=== PATIENT | male | born 1995 | race Caucasian/White ===

== ENCOUNTER 2016-12-28 20:19 | Emergency (ER) | payer BC ==
[2016-12-28 20:29] VITALS: BP 124/93
[2016-12-28] MEDS ORDERED: Witch Hazel Medicated Pads 100/Jar TOP PRN (21:02)
[2016-12-28] MEDS ORDERED: Hydrocortisone 1% Crm 30 GM Tube TOP PRN (21:02)
--- NOTE | 2016-12-28 21:36 | EDM.PDOC ---
ED HPI GI/ABDOMINAL - General Chief Complaint: Gastrointestinal Problem Stated Complaint: HEMORRHOID Time Seen by Provider: 12/28/16 20:38 Source of Information: Reports: Patient History Limitations: Reports: No limitations - History of Present Illness INITIAL COMMENTS - FREE TEXT/NARRATIVE: The patient presents with a possible painful hemorrhoid. He started noticing this a few days ago and it has gotten worse. He has had trouble before but never this bad. He has no abdominal pain, nausea or vomiting. He has chills but no fever. Timing/Duration: Reports: Day(s): Location: other (Rectal) Quality: Reports: burning Severity: moderate Worsens with: Reports: defecating Associated Symptoms: Denies: back pain, testicular pain, diarrhea, bloody stools , nausea/vomiting - Related Data Allergies/ADRs: Allergies Allergy/AdvReac Type Severity Reaction Status Date / Time No Known Allergies Allergy Verified 12/28/16 20:29 Home Meds: Home Meds Cetirizine [ZyrTEC] 10 mg PO DAILY 04/27/15 [History] Metoprolol Tartrate 50 mg PO BID 04/27/15 [History] Ranitidine [Zantac] 150 mg PO BID 04/27/15 [History] diphenhydrAMINE [Benadryl] 25 mg PO QID #28 tablet 04/27/15 [Rx] diphenhydrAMINE [Benadryl] 50 mg PO DAILY 04/27/15 [History] Past Medical History - Past Health History Medical/Surgical History: Denies Medical/Surgical History Other Cardiovascular History: Pt had SVT 2 months ago treated in the ED. Gastrointestinal History: Reports: GERD Social & Family History - Tobacco Use Smoking Status *Q: Never Smoker - Caffeine Use Caffeine Use: Reports: None - Alcohol Use Days Per Week of Alcohol Use: 1 Number of Drinks Per Day: 3 Total Drinks Per Week: 3 - Recreational Drug Use Recreational Drug Use: No ED ROS GENERAL - Review of Systems Review Of Systems: See Below Constitutional: Reports: no symptoms HEENT: Reports: No symptoms Respiratory: Reports: No Symptoms Cardiovascular: Reports: No symptoms Endocrine: Reports: no symptoms GI/Abdominal: Reports: Other (rectal pain). Denies: Abdominal pain, Nausea, Vomiting : Reports: no symptoms Musculoskeletal: Reports: no symptoms ED EXAM, GI/ABD - Physical Exam Exam: See Below Exam Limited By: No limitations General Appearance: alert, no apparent distress Ears: normal external exam Nose: normal inspection Head: atraumatic, normocephalic Neck: normal inspection Respiratory/Chest: no respiratory distress, lungs clear, normal breath sounds Cardiovascular: regular rate, rhythm, no edema, no murmur GI/Abdominal: soft, non tender, no organomegaly, no mass Rectal (Males) Exam: Other (Large external hemmorrhoid that is not thrombosed and there is no bleeding) Course - Vital Signs Last Recorded V/S: Last Vital Signs Temp 98.4 F 12/28/16 20:24 Pulse 104 H 12/28/16 20:24 Resp 18 12/28/16 20:24 BP 124/93 H 12/28/16 20:24 Pulse Ox 100 12/28/16 20:24 - Orders/Labs/Meds Orders: Active Orders 24 hr Category Date Time Status Hydrocortisone [Hydrocortisone 1% Crm] Med 12/28/16 21:02 Active 30 gm TOP ASDIRECTED PRN Witch Arabella [Tucks] Med 12/28/16 21:02 Active 1 pad TOP ASDIRECTED PRN Medication Orders Hydrocortisone (Hydrocortisone 1% Crm) 30 gm TOP ASDIRECTED PRN PRN Reason: Itching Last Admin: 12/28/16 21:27 Dose: 30 gm Witch Arabella (Tucks) 1 pad TOP ASDIRECTED PRN PRN Reason: Pain Last Admin: 12/28/16 21:28 Dose: 1 pad Meds: Medications Generic Name Dose Route Start Last Admin Trade Name Freq PRN Reason Stop Dose Admin Hydrocortisone 30 gm 12/28/16 21:02 12/28/16 21:27 Hydrocortisone 1% Crm TOP 30 gm ASDIRECTED PRN Administration Itching Witch Arabella 1 pad 12/28/16 21:02 12/28/16 21:28 Tucks TOP 1 pad ASDIRECTED PRN Administration Pain - Re-Assessments/Exams Free Text/Narrative Re-Assessment/Exam: 12/28/16 21:33 I will get him on some hydrocortisone and medi pads. I will have him follow up with Dr Davide Knox. Departure - Departure Time of Disposition: 21:35 Disposition: Home, Self-Care 01 Condition: good Clinical Impression: Hemorrhoid Qualifiers: Hemorrhoid type: second degree Qualified Code(s): K64.1 - Second degree hemorrhoids Referrals: Lul Collins Jr, MD [Primary Care Provider] - Davide Knox MD [Physician] - 1 Week Forms: ED Department Discharge Additional Instructions: Use the medi pads up to six times per day after cleaning the area and drying it and apply the hydrocortisone cream 2 times per day. Make sure you are drinking plenty of fluids and taking a stool softner such as colace to keep your stool loose. Please return if you are worse and follow up with Dr Knox in 1 week. - My Orders Last 24 Hours: My Active Orders 12/28/16 21:02 Hydrocortisone [Hydrocortisone 1% Crm] 30 gm TOP ASDIRECTED PRN Witch Arabella [Tucks] 1 pad TOP ASDIRECTED PRN - Assessment/Plan Last 24 Hours: My Active Orders 12/28/16 21:02 Hydrocortisone [Hydrocortisone 1% Crm] 30 gm TOP ASDIRECTED PRN Witch Arabella [Tucks] 1 pad TOP ASDIRECTED PRN
== END 2016-12-28 21:41 | disposition home or self-care (01) ==
LOC: JD.ED 20:19
DX: K64.1 Second degree hemorrhoids (principal); K64.4 Residual hemorrhoidal skin tags; K21.9 Gastro-esophageal reflux disease without esophagitis; Z79.899 Other long term (current) drug therapy
CPT/HCPCS: 99283

== ENCOUNTER 2017-02-20 12:55 | Emergency (ER) | payer BC ==
[2017-02-20 13:05] VITALS: BP 124/85
[2017-02-20] MEDS ORDERED: Sodium Chloride 0.9% 10 ML Syringe FLUSH PRN (13:24)
--- NOTE | 2017-02-20 13:32 | EDM.PDOC ---
ED HPI GENERAL MEDICAL PROBLEM - General Chief Complaint: Cardiovascular Problem Stated Complaint: INCREASED HEART RATE Time Seen by Provider: 02/20/17 13:27 Source of Information: Reports: Patient History Limitations: Reports: No Limitations - History of Present Illness INITIAL COMMENTS - FREE TEXT/NARRATIVE: 22-year-old male presents for evaluation and treatment of chest pain and palpitations. On arrival to ER patient was found to be in SVT. He was instructed to bear down and this successfully converted him to normal sinus rhythm of 105. The patient states that his chest pain and palpitations have since improved. He reports that he took a break around noon today. He states he walks outside and went and had lunch. He states that immediately after lunch he was walking outside and developed chest pain and palpitations. States that he sat down as he was feeling dizzy. He states that he tried bearing down at work but was unsuccessful. This is the third time he has been in SVT. The first time required conversion with adenosine. Last time he was able to convert with vagal manuevers. Patient is currently on metoprolol and takes this daily. Denies any current chest pains or palpitations. Denies any recent fevers, cough, abdominal pain, nausea, vomiting or diarrhea. Chest Pain Score (Numeric/FACES): 7 - Related Data Allergies Allergy/AdvReac Type Severity Reaction Status Date / Time No Known Allergies Allergy Verified 02/20/17 13:09 Home Meds: Home Meds Metoprolol Tartrate 50 mg PO BID 04/27/15 [History] Past Medical History - Past Health History Medical/Surgical History: Denies Medical/Surgical History Other Cardiovascular History: Pt had SVT 2 months ago treated in the ED. Gastrointestinal History: Reports: GERD Social & Family History - Family History Family Medical History: Noncontributory - Tobacco Use Smoking Status *Q: Former Smoker Used Tobacco, but Quit: Yes Month Tobacco Last Used: 1 - Caffeine Use Caffeine Use: Reports: None - Alcohol Use Days Per Week of Alcohol Use: 1 Number of Drinks Per Day: 3 Total Drinks Per Week: 3 - Recreational Drug Use Recreational Drug Use: No ED ROS GENERAL - Review of Systems Review Of Systems: See Below Constitutional: Denies: Fever Cardiovascular: Reports: Chest Pain (earlier, none currently), Palpitations ( earlier, none currently) GI/Abdominal: Denies: Abdominal Pain, Diarrhea, Nausea, Vomiting Neurological: Reports: Dizziness ED EXAM, GENERAL - Physical Exam Exam: See Below Exam Limited By: No Limitations General Appearance: Alert, WD/WN, No Apparent Distress, Anxious Ears: Normal External Exam Respiratory/Chest: No Respiratory Distress, Lungs Clear, Normal Breath Sounds Cardiovascular: Normal Peripheral Pulses, Regular Rate, Rhythm, No Murmur Peripheral Pulses: 2+: Radial (L) GI/Abdominal: Normal Bowel Sounds, Soft, Non-Tender Neurological: Alert, Oriented, Normal Cognition Psychiatric: Normal Affect, Normal Mood Skin Exam: Warm, Dry, Normal Color EKG INTERPRETATION EKG Date: 02/20/17 Time: 13:00 EKG Interpretation Comments: initial EKG at 12:58 shows a SVT second EKG at 13:05, post vagal manuevers, shows NSR at 105 bpm. Reviewed by myself and Dr. Vázquez. Course - Vital Signs Last Recorded V/S: Last Vital Signs Temp 36.9 C 02/20/17 13:01 Pulse 202 H 02/20/17 13:01 Resp 18 02/20/17 13:01 BP 124/85 02/20/17 13:01 Pulse Ox 100 02/20/17 13:01 - Orders/Labs/Meds Orders: Active Orders 24 hr Category Date Time Status Cardiac Monitoring [RC] . DIRECTED Care 02/20/17 13:23 Active EKG Documentation Completion [RC] STAT Care 02/20/17 13:23 Active Peripheral IV Care [RC] . DIRECTED Care 02/20/17 13:24 Active Peripheral IV Insertion Adult [OM.PC] Routine Oth 02/20/17 13:24 Ordered Labs: Laboratory Tests 02/20/17 02/20/17 Range/Units 13:05 13:05 WBC 8.58 (4.23-9.07) K/mm3 RBC 6.02 (4.63-6.08) M/mm3 Hgb 17.0 (13.7-17.5) gm/L Hct 46.9 (40.1-51.0) % MCV 77.9 L (79.0-92.2) fl MCH 28.2 (25.7-32.2) pg MCHC 36.2 H (32.2-35.5) g/dl RDW Std Deviation 37.4 (35.1-43.9) fL Plt Count 264 (163-337) K/mm3 MPV 9.3 L (9.4-12.3) fl Neut % (Auto) 51.6 (34.0-67.9) % Lymph % (Auto) 38.7 (21.8-53.1) % [place] % (Auto) 8.0 (5.3-12.2) % Eos % (Auto) 1.5 (0.8-7.0) Baso % (Auto) 0.0 L (0.1-1.2) % Neut # (Auto) 4.42 (1.78-5.38) K/mm3 Lymph # (Auto) 3.32 (1.32-3.57) K/mm3 [place]christ # (Auto) 0.69 (0.30-0.82) K/mm3 Eos # (Auto) 0.13 (0.04-0.54) K/mm3 Baso # (Auto) 0.00 L (0.01-0.08) K/mm3 Manual Slide Review Normal smear Sodium 141 (136-145) mEq/L Potassium 3.9 (3.5-5.1) mEq/L Chloride 105 (98-107) mEq/L Carbon Dioxide 21 (21-32) mEq/L Anion Gap 18.9 H (5-15) BUN 16 (7-18) mg/dL Creatinine 1.4 H (0.7-1.3) mg/dL Est Cr Clr Drug Dosing TNP Estimated GFR (MDRD) > 60 (>60) mL/min BUN/Creatinine Ratio 11.4 L (14-18) Glucose 159 H (74-106) mg/dL Calcium 9.6 (8.5-10.1) mg/dL Magnesium 1.7 L (1.8-2.4) mg/dl Total Bilirubin 0.3 (0.2-1.0) mg/dL AST 21 (15-37) U/L ALT 33 (16-63) U/L Alkaline Phosphatase 100 (46-116) U/L Troponin I < 0.017 (0.00-0.056) ng/mL Total Protein 8.5 H (6.4-8.2) g/dl Albumin 4.2 (3.4-5.0) g/dl Globulin 4.3 gm/dL Albumin/Globulin Ratio 1.0 (1-2) Meds: Medications Discontinued Medications Generic Name Dose Route Start Last Admin Trade Name Andres PRN Reason Stop Dose Admin Sodium Chloride 1,000 mls @ 999 mls/hr 02/20/17 14:22 02/20/17 14:49 Normal Saline IV 02/20/17 15:22 Not Given ONETIME ONE Sodium Chloride 10 ml 02/20/17 13:24 02/20/17 13:43 Saline Flush FLUSH 10 ml ASDIRECTED PRN Administration Keep Vein Open - Radiology Interpretation Free Text/Narrative:: chest [address] Chou: 1. Nothing acute is identified on portable chest xray - Re-Assessments/Exams Free Text/Narrative Re-Assessment/Exam: 02/20/17 14:40 Labs returned. WBC is 8.58, hgb is 17.0 and plts are 264 sodium is 141, potassium is 3.9 and chloride is 105. Anion gap is 18.9, creatinine is 1.4 and glucose is 159 Trop is normal at <0.017 Mag is 1.7 I ordered a bolus of NS. Patient does not want to stay any longer for the fluids. No chest pains or palpitations. He will drink fluids outpatient. Requests to go home at this time. Discharge instructions as documented. Departure - Departure Time of Disposition: 14:45 Disposition: Home, Self-Care 01 Condition: good Clinical Impression: SVT (supraventricular tachycardia), Dehydration Instructions: Paroxysmal Supraventricular Tachycardia, [id number], Dehydration, Adult, [id number] Referrals: Lul Collins Jr, MD [Primary Care Provider] - Forms: ED Department Discharge Additional Instructions: Continue on your metoprolol. drink plenty of fluids. Drink water and Gatorade or Powerade for the electrolytes. If you experience this again. Attempt To blow on a syringe and attempt to move the plunger. This will allow you to vagal down. He can also try bearing down. Follow up with your primary care provider as needed. Please return to the ER if your symptoms change or worsen. - My Orders Last 24 Hours: My Active Orders 02/20/17 13:23 Cardiac Monitoring [RC] . DIRECTED EKG Documentation Completion [RC] STAT 02/20/17 13:24 Peripheral IV Care [RC] . DIRECTED Peripheral IV Insertion Adult [OM.PC] Routine - Assessment/Plan Last 24 Hours: My Active Orders 02/20/17 13:23 Cardiac Monitoring [RC] . DIRECTED EKG Documentation Completion [RC] STAT 02/20/17 13:24 Peripheral IV Care [RC] . DIRECTED Peripheral IV Insertion Adult [OM.PC] Routine
[2017-02-20] MEDS ORDERED: Sodium Chloride 0.9% 1,000 ML IV ONE (14:22)
--- NOTE | 2017-02-20 14:41 | CR ---
Chest: Portable view of the chest was obtained. Comparison: Previous chest x-ray of 12/19/14. Heart size and mediastinum are within normal limits for portable technique. Lungs are clear. Bony structures are grossly intact. Impression: 1. Nothing acute is identified on portable chest x-ray. Diagnostic code #1
== END 2017-02-20 14:58 | disposition home or self-care (01) ==
LOC: JD.ED 12:55
DX: I47.1 Supraventricular tachycardia (principal); E86.0 Dehydration; Z87.891 Personal history of nicotine dependence
CPT/HCPCS: 36415; 71010; 80053; 83735; 84484; 85025; 93005; 99285; J7050; 99283

== ENCOUNTER 2017-09-29 14:16 | Emergency (ER) | payer BC ==
[2017-09-29 14:34] VITALS: BP 118/71
[2017-09-29] MEDS ORDERED: Adenosine 6 MG/2 ML SDV IVPUSH ONE (14:35)
[2017-09-29] MEDS ORDERED: Sodium Chloride 0.9% 10 ML Syringe FLUSH PRN (14:36)
[2017-09-29] MEDS ORDERED: Adenosine 12 MG/4 ML SDV IVPUSH ONE (14:36)
[2017-09-29] MEDS ORDERED: Sodium Chloride 0.9% 1,000 ML IV ONE ×2 (14:49→16:00)
--- NOTE | 2017-09-29 14:54 | EDM.PDOC ---
ED HPI GENERAL MEDICAL PROBLEM - General Chief Complaint: Chest Pain Stated Complaint: CHEST PAIN AND SOB Time Seen by Provider: 09/29/17 14:54 Source of Information: Reports: Patient, Old Records (previous ER records) History Limitations: Reports: No Limitations - History of Present Illness INITIAL COMMENTS - FREE TEXT/NARRATIVE: 22-year-old male presents for evaluation and treatment of chest pain and shortness of breath. Patient reports around 13:30 today he developed chest pain and shortness of breath. Full that his heart was racing. He has had this on several occasions in the past. He attempted vagal maneuvers including bearing- down and blowing into a syringe. Neither one of these vagal maneuvers resolved his discomfort. He reports associated symptoms of lightheadedness and diaphoresis. No syncope. Reports he is currently on metoprolol twice a day. He has been taking this as prescribed. He has never seen cardiology before. Patient reports that he is had SVT several times in the past. Review of system records show that he has been seen in the ER on numerous occasions for SVT. Often resolves with vagal maneuvers. He has required adenosine in the past. Left Chest Pain Score (Numeric/FACES): 6 - Related Data Allergies Allergy/AdvReac Type Severity Reaction Status Date / Time No Known Allergies Allergy Verified 02/20/17 13:09 Home Meds: Home Meds Metoprolol Tartrate 50 mg PO BID 04/27/15 [History] Past Medical History - Past Health History Medical/Surgical History: Denies Medical/Surgical History Other Cardiovascular History: Pt had SVT 2 months ago treated in the ED. Gastrointestinal History: Reports: GERD Social & Family History - Family History Family Medical History: Noncontributory - Tobacco Use Smoking Status *Q: Never Smoker Used Tobacco, but Quit: Yes Month Tobacco Last Used: 1 - Caffeine Use Caffeine Use: Reports: Soda - Alcohol Use Days Per Week of Alcohol Use: 1 Number of Drinks Per Day: 3 Total Drinks Per Week: 3 - Recreational Drug Use Recreational Drug Use: No ED ROS GENERAL - Review of Systems Review Of Systems: See Below Constitutional: Reports: Diaphoresis Respiratory: Reports: Shortness of Breath Cardiovascular: Reports: Chest Pain, Lightheadedness, Palpitations. Denies: Syncope GI/Abdominal: Reports: Nausea. Denies: Vomiting Neurological: Denies: Syncope ED EXAM, GENERAL - Physical Exam Exam: See Below Exam Limited By: No Limitations General Appearance: Alert, WD/WN, Anxious, Moderate Distress, Thin Nose: Normal Inspection Throat/Mouth: Normal Inspection Neck: Normal Inspection Respiratory/Chest: No Respiratory Distress, Lungs Clear, Normal Breath Sounds Cardiovascular: No Murmur, Tachycardia Peripheral Pulses: 2+: Radial (L), Radial (R) GI/Abdominal: Soft, Non-Tender Neurological: Alert, Oriented, Normal Cognition Psychiatric: Normal Affect, Normal Mood, Anxious Skin Exam: Cool, Diaphoretic EKG INTERPRETATION EKG Date: 09/29/17 Time: 14:30 Rhythm: Other (SVT) Rate (Beats/Min): 179 [place]: Normal P-Wave: Present QRS: Normal ST-T: Normal QT: Normal EKG Interpretation Comments: EKG at 14:30 shows SVT at 179 bpm. Repeat EKG at 15:00 shows a NSR at 79 bpm. EKGs reviewed by myself and Dr. Ram. Course - Vital Signs Last Recorded V/S: Last Vital Signs Temp 36.2 C 09/29/17 14:32 Pulse 168 H 09/29/17 14:32 Resp 19 09/29/17 14:32 BP 118/71 09/29/17 14:32 Pulse Ox 98 09/29/17 14:32 - Orders/Labs/Meds Orders: Active Orders 24 hr Category Date Time Status Cardiac Monitoring [RC] . DIRECTED Care 09/29/17 14:35 Active EKG Documentation Completion [RC] ASDIRECTED Care 09/29/17 14:50 Active Peripheral IV Care [RC] . DIRECTED Care 09/29/17 14:36 Active Chest 1V Frontal [CR] Stat Exams 09/29/17 14:49 Taken Peripheral IV Insertion Adult [OM.PC] Routine Oth 09/29/17 14:36 Ordered EKG 12 Lead [EK] Stat Ther 09/29/17 14:49 Ordered Labs: Laboratory Tests 09/29/17 09/29/17 Range/Units 14:25 14:25 WBC 8.48 (4.23-9.07) K/mm3 RBC 6.33 H (4.63-6.08) M/mm3 Hgb 17.8 H (13.7-17.5) gm/L Hct 49.0 (40.1-51.0) % MCV 77.4 L (79.0-92.2) fl MCH 28.1 (25.7-32.2) pg MCHC 36.3 H (32.2-35.5) g/dl RDW Std Deviation 36.9 (35.1-43.9) fL Plt Count 326 (163-337) K/mm3 MPV 8.7 L (9.4-12.3) fl Neutrophils % (Manual) 64 H (40-60) % Band Neutrophils % 0 (0-10) % Lymphocytes % (Manual) 30 (20-40) % Atypical Lymphs % 0 % Monocytes % (Manual) 5 (2-10) % Eosinophils % (Manual) 1 (0.8-7.0) % Basophils % (Manual) 0 L (0.2-1.2) Platelet Estimate Adequate Poikilocytosis 1+ slight Tear Drop Cells 1+ slight RBC Morph Comment Not Reportable Sodium 141 (136-145) mEq/L Potassium 3.9 (3.5-5.1) mEq/L Chloride 105 (98-107) mEq/L Carbon Dioxide 22 (21-32) mEq/L Anion Gap 17.9 H (5-15) BUN 20 H (7-18) mg/dL Creatinine 1.5 H (0.7-1.3) mg/dL Est Cr Clr Drug Dosing 80.88 mL/min Estimated GFR (MDRD) 57 (>60) mL/min BUN/Creatinine Ratio 13.3 L (14-18) Glucose 116 H (74-106) mg/dL Calcium 9.4 (8.5-10.1) mg/dL Magnesium 1.9 (1.8-2.4) mg/dl Total Bilirubin 0.5 (0.2-1.0) mg/dL AST TNP ALT TNP Alkaline Phosphatase 79 (46-116) U/L Troponin I < 0.017 (0.00-0.056) ng/mL Total Protein 8.4 H (6.4-8.2) g/dl Albumin 4.2 (3.4-5.0) g/dl Globulin 4.2 gm/dL Albumin/Globulin Ratio 1.0 (1-2) TSH 3rd Generation 1.815 (0.358-3.74) uIU/mL Ethyl Alcohol 0.00 (0.00) gm% Meds: Medications Discontinued Medications Generic Name Dose Route Start Last Admin Trade Name Andres PRN Reason Stop Dose Admin Adenosine 6 mg 09/29/17 14:35 09/29/17 14:52 Adenocard IVPUSH 09/29/17 14:36 6 mg NOW ONE Administration Adenosine 12 mg 09/29/17 14:36 09/29/17 14:52 Adenocard IVPUSH 09/29/17 14:37 12 mg NOW ONE Administration Sodium Chloride 1,000 mls @ 999 mls/hr 09/29/17 14:49 09/29/17 14:57 Normal Saline IV 09/29/17 15:49 999 mls/hr ONETIME ONE Administration Sodium Chloride 1,000 mls @ 999 mls/hr 09/29/17 16:00 09/29/17 16:10 Normal Saline IV 09/29/17 17:00 999 mls/hr ONETIME ONE Administration Sodium Chloride 10 ml 09/29/17 14:36 09/29/17 14:52 Saline Flush FLUSH 10 ml ASDIRECTED PRN Administration Keep Vein Open - Radiology Interpretation Free Text/Narrative:: chest xray shows no acute intrathoracic process - Re-Assessments/Exams Free Text/Narrative Re-Assessment/Exam: 09/29/17 16:20 Patient's initial EKG showed SVT. We attempted to perform vagal maneuvers by having patient blow into a syringe while elevating his legs. This did not change in his rhythm. I then had nursing staff establish an IV. He was given 6 mg IV adenosine was attached to a stopcock and normal saline was immediately pushed. This did not show any changes on his telemetry. He was then given a dose of 12 mg adenosine was attached to stopcock and Normal saline was immediately pushed. This brought him to a normal sinus rhythm. Adenosine was given at 14:43 (6mg) and 14:45 (12mg). Patient is resting comfortably at this time. He denies any chest pain since his rhythm has converted to normal sinus. He has been in a normal sinus rhythm since receiving the second dose of adenosine. I reviewed the labs, EKG and chest x-ray results with the patient. Labs show dehydration. I will order him a second bolus of normal saline and to monitor here in the ER. 09/29/17 17:22 Patient received a second liter normal saline. He is stated in normal sinus rhythm since receiving the adenosine. I will discharge him home at this time. Recommend follow-up with cardiology as he has never seen cardiology before. Discharge instructions as documented. Departure - Departure Time of Disposition: 17:23 Disposition: Home, Self-Care 01 Condition: Good Clinical Impression: SVT (supraventricular tachycardia) Instructions: Paroxysmal Supraventricular Tachycardia Referrals: Lul Collins Jr, MD [Primary Care Provider] - Vipin Coon MD [Ordering Only Provider] - Forms: ED Department Discharge Additional Instructions: Continue with your current plan of care. Rest. make sure you are drinking plenty of fluids. Recommend following up with cardiology for a consult. Recommend Dr. Coon call [phone] to schedule with him. . Please return to ER if your symptoms change or worsen. - My Orders Last 24 Hours: My Active Orders 09/29/17 14:35 Cardiac Monitoring [RC] . DIRECTED 09/29/17 14:36 Peripheral IV Care [RC] . DIRECTED Peripheral IV Insertion Adult [OM.PC] Routine 09/29/17 14:49 Chest 1V Frontal [CR] Stat EKG 12 Lead [EK] Stat 09/29/17 14:50 EKG Documentation Completion [RC] ASDIRECTED - Assessment/Plan Last 24 Hours: My Active Orders 09/29/17 14:35 Cardiac Monitoring [RC] . DIRECTED 09/29/17 14:36 Peripheral IV Care [RC] . DIRECTED Peripheral IV Insertion Adult [OM.PC] Routine 09/29/17 14:49 Chest 1V Frontal [CR] Stat EKG 12 Lead [EK] Stat 09/29/17 14:50 EKG Documentation Completion [RC] ASDIRECTED
--- NOTE | 2017-09-30 13:31 | CR ---
Chest: Portable view of the chest was obtained. Comparison: Prior chest x-ray of 02/20/17. Heart size and mediastinum are normal. Lungs are clear. Bony structures are grossly intact. Impression: 1. Nothing acute is identified on portable chest x-ray. Diagnostic code #1
== END 2017-09-29 17:50 | disposition home or self-care (01) ==
LOC: JD.ED 14:16
DX: I47.1 Supraventricular tachycardia (principal); Z87.891 Personal history of nicotine dependence
CPT/HCPCS: 36415; 71045; 80053; 83735; 84443; 84484; 85025; 93005; 96361; 96374; 99285; G0480; J0153; J7040; J7050; 93010; 99284-25

== ENCOUNTER 2018-09-17 15:33 | Emergency (ER) | payer BC ==
[2018-09-17] MEDS ORDERED: Metoprolol Tartrate 25 MG Tab PO ONE (15:57)
[2018-09-17] MEDS ORDERED: Sodium Chloride 0.9% 10 ML Syringe FLUSH PRN (15:57)
[2018-09-17 16:09] VITALS: BP 130/85
--- NOTE | 2018-09-17 17:18 | EDM.PDOC ---
ED HPI GENERAL MEDICAL PROBLEM - General Chief Complaint: Chest Pain Stated Complaint: CHEST PAINS Time Seen by Provider: 09/17/18 15:46 Source of Information: Reports: Patient History Limitations: Reports: No Limitations - History of Present Illness INITIAL COMMENTS - FREE TEXT/NARRATIVE: The patient presents with chest pain. He has a history of SVT. He is on metoprolol. He has been drinking more energy drinks lately and about 2 hours ago he noticed his heart was racing and he had chest pain. He bared down and got rid of the SVT but the chest pain persisted. He says it is sharp and it is made worse by taking a deep breath. He has no fever, chills, cough, abdominal pain, nausea or vomiting. Onset: Sudden Duration: Hour(s): Location: Reports: Chest Quality: Reports: Sharp Severity: Moderate Improves with: Reports: None Worsens with: Reports: Breathing Associated Symptoms: Reports: Chest Pain. Denies: Cough, Fever/Chills, Headaches, Nausea/Vomiting, Shortness of Breath Left Chest Pain Score (Numeric/FACES): 5 - Related Data Allergies Allergy/AdvReac Type Severity Reaction Status Date / Time No Known Allergies Allergy Verified 02/20/17 13:09 Home Meds: Home Meds Metoprolol Tartrate 50 mg PO BID 04/27/15 [History] Past Medical History - Past Health History Medical/Surgical History: Denies Medical/Surgical History Other Cardiovascular History: Pt had SVT 2 months ago treated in the ED. Gastrointestinal History: Reports: GERD Social & Family History - Family History Family Medical History: Noncontributory - Tobacco Use Smoking Status *Q: Never Smoker - Caffeine Use Caffeine Use: Reports: Coffee, Energy Drinks - Recreational Drug Use Recreational Drug Use: No ED ROS GENERAL - Review of Systems Review Of Systems: See Below Constitutional: Reports: No Symptoms HEENT: Reports: No Symptoms Respiratory: Reports: No Symptoms Cardiovascular: Reports: Chest Pain Endocrine: Reports: No Symptoms GI/Abdominal: Reports: No Symptoms : Reports: No Symptoms Musculoskeletal: Reports: No Symptoms ED EXAM, GENERAL - Physical Exam Exam: See Below Exam Limited By: No Limitations General Appearance: Alert, No Apparent Distress Ears: Normal External Exam Nose: Normal Inspection Head: Atraumatic, Normocephalic Neck: Normal Inspection Respiratory/Chest: No Respiratory Distress, Lungs Clear, Normal Breath Sounds Cardiovascular: Regular Rate, Rhythm, No Edema, No Murmur GI/Abdominal: Soft, Non-Tender, No Organomegaly, No Mass Back Exam: Normal Inspection Extremities: Normal Inspection Neurological: Alert, Oriented, No Motor/Sensory Deficits EKG INTERPRETATION EKG Date: 09/17/18 Time: 15:46 Rhythm: NSR Rate (Beats/Min): 83 [place]: Normal P-Wave: Present QRS: Normal ST-T: Normal QT: Normal Course - Vital Signs Last Recorded V/S: Last Vital Signs Temp 97.8 F 09/17/18 15:38 Pulse 75 09/17/18 16:08 Resp 16 09/17/18 15:38 BP 130/85 09/17/18 16:08 Pulse Ox 100 09/17/18 15:38 - Orders/Labs/Meds Orders: Active Orders 24 hr Category Date Time Status Cardiac Monitoring [RC] . DIRECTED Care 09/17/18 15:57 Active EKG Documentation Completion [RC] STAT Care 09/17/18 15:58 Active Peripheral IV Care [RC] . DIRECTED Care 09/17/18 15:58 Active Chest 1V Frontal [CR] Stat Exams 09/17/18 15:58 Taken Sodium Chloride 0.9% [Saline Flush] Med 09/17/18 15:57 Active 10 ml FLUSH ASDIRECTED PRN Peripheral IV Insertion Adult [OM.PC] Stat Oth 09/17/18 15:57 Ordered Medication Orders Sodium Chloride (Saline Flush) 10 ml FLUSH ASDIRECTED PRN PRN Reason: Keep Vein Open Last Admin: 09/17/18 16:09 Dose: 10 ml Labs: Laboratory Tests 09/17/18 09/17/18 09/17/18 Range/Units 15:50 15:50 15:50 WBC 6.22 (4.23-9.07) K/mm3 RBC 6.03 (4.63-6.08) M/mm3 Hgb 16.7 (13.7-17.5) gm/L Hct 47.3 (40.1-51.0) % MCV 78.4 L (79.0-92.2) fl MCH 27.7 (25.7-32.2) pg MCHC 35.3 (32.2-35.5) g/dl RDW Std Deviation 38.1 (35.1-43.9) fL Plt Count 288 (163-337) K/mm3 MPV 9.1 L (9.4-12.3) fl Neut % (Auto) 66.7 (34.0-67.9) % Lymph % (Auto) 23.8 (21.8-53.1) % [place] % (Auto) 7.2 (5.3-12.2) % Eos % (Auto) 2.1 (0.8-7.0) Baso % (Auto) 0.0 L (0.1-1.2) % Neut # (Auto) 4.15 (1.78-5.38) K/mm3 Lymph # (Auto) 1.48 (1.32-3.57) K/mm3 [place] # (Auto) 0.45 (0.30-0.82) K/mm3 Eos # (Auto) 0.13 (0.04-0.54) K/mm3 Baso # (Auto) 0.00 L (0.01-0.08) K/mm3 Manual Slide Review Normal smear D-Dimer, Quantitative < 0.19 L (0.19-0.50) mg/L Sodium 143 (136-145) mEq/L Potassium 3.7 (3.5-5.1) mEq/L Chloride 106 (98-107) mEq/L Carbon Dioxide 27 (21-32) mEq/L Anion Gap 13.7 (5-15) BUN 13 (7-18) mg/dL Creatinine 1.3 (0.7-1.3) mg/dL Est Cr Clr Drug Dosing 92.52 mL/min Estimated GFR (MDRD) > 60 (>60) mL/min BUN/Creatinine Ratio 10.0 L (14-18) Glucose 114 H (74-106) mg/dL Calcium 9.4 (8.5-10.1) mg/dL Total Bilirubin 0.5 (0.2-1.0) mg/dL AST 18 (15-37) U/L ALT 29 (16-63) U/L Alkaline Phosphatase 66 (46-116) U/L Troponin I < 0.017 (0.00-0.056) ng/mL Total Protein 8.2 (6.4-8.2) g/dl Albumin 4.4 (3.4-5.0) g/dl Globulin 3.8 gm/dL Albumin/Globulin Ratio 1.2 (1-2) TSH 3rd Generation 1.300 (0.358-3.74) uIU/mL Meds: Medications Generic Name Dose Route Start Last Admin Trade Name Andres PRN Reason Stop Dose Admin Sodium Chloride 10 ml 09/17/18 15:57 09/17/18 16:09 Saline Flush FLUSH 10 ml ASDIRECTED PRN Administration Keep Vein Open Discontinued Medications Generic Name Dose Route Start Last Admin Trade Name Frejunior PRN Reason Stop Dose Admin Metoprolol Tartrate 50 mg 09/17/18 15:57 09/17/18 16:08 Lopressor PO 09/17/18 15:58 50 mg ONETIME ONE Administration - Re-Assessments/Exams Free Text/Narrative Re-Assessment/Exam: 09/17/18 17:17 I ordered an IV saline lock, EKG, CXR, labs and metoprolol 50mg by mouth. His EKG shows a NSR with no acute changes. His CXR looks good. His CBC and CMP look good. His troponin is negative. His D-dimer is negative. He feels better. I will discharge him home. Departure - Departure Time of Disposition: 17:20 Disposition: Home, Self-Care 01 Condition: Good Clinical Impression: Atypical chest pain Referrals: PCP,Unknown [Primary Care Provider] - Additional Instructions: Take your medication as prescribed. Drink plenty of water. Avoid caffeine and other stimulants. Please return if you are worse. - My Orders Last 24 Hours: My Active Orders 09/17/18 15:57 Cardiac Monitoring [RC] . DIRECTED Sodium Chloride 0.9% [Saline Flush] 10 ml FLUSH ASDIRECTED PRN Peripheral IV Insertion Adult [OM.PC] Stat 09/17/18 15:58 EKG Documentation Completion [RC] STAT Peripheral IV Care [RC] . DIRECTED Chest 1V Frontal [CR] Stat - Assessment/Plan Last 24 Hours: My Active Orders 09/17/18 15:57 Cardiac Monitoring [RC] . DIRECTED Sodium Chloride 0.9% [Saline Flush] 10 ml FLUSH ASDIRECTED PRN Peripheral IV Insertion Adult [OM.PC] Stat 09/17/18 15:58 EKG Documentation Completion [RC] STAT Peripheral IV Care [RC] . DIRECTED Chest 1V Frontal [CR] Stat
--- NOTE | 2018-09-17 17:24 | CR ---
Chest: Portable view of the chest was obtained. Comparison: Prior chest x-ray of 09/29/17. Heart size and mediastinum are within normal limits for portable technique. Lungs are clear. Bony structures are grossly intact. Impression: 1. Nothing acute is appreciated on portable chest x-ray. Diagnostic code #1
== END 2018-09-17 17:50 | disposition home or self-care (01) ==
LOC: JD.ED 15:33
DX: R07.89 Other chest pain (principal)
CPT/HCPCS: 36415; 71045; 80053; 84443; 84484; 85025; 85379; 93005; 99285; A9270; 93010; 99284

== ENCOUNTER 2018-10-30 21:07 | Emergency (ER) | payer BC ==
[2018-10-30 21:17] VITALS: BP 134/81
[2018-10-30] MEDS ORDERED: Dextrose 5%-0.9% NaCl 1,000 ML IV SCH (21:30)
[2018-10-30] MEDS ORDERED: HYDROmorphone 1 MG/ML Syringe IVPUSH ONE (21:31)
[2018-10-30] MEDS ORDERED: Ondansetron 4 MG Tab.DIS PO ONE (21:31)
[2018-10-30] MEDS ORDERED: Ondansetron 4 MG/2 ML SDV IVPUSH ONE (21:35)
[2018-10-30] MEDS ORDERED: Ondansetron 4 MG/2 ML SDV ONE (21:36)
--- NOTE | 2018-10-30 21:36 | EDM.PDOC ---
ED HPI GENERAL MEDICAL PROBLEM - General Chief Complaint: Back Pain or Injury Stated Complaint: BACK SPASMS Time Seen by Provider: 10/30/18 21:25 Source of Information: Reports: Patient History Limitations: Reports: No Limitations - History of Present Illness INITIAL COMMENTS - FREE TEXT/NARRATIVE: 23-year-old male presents the ED with chief complaint of diffuse low back pain with muscle spasms that started since he got out of bed this morning. 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 He works in awkward positions particular he bent over [place] working on brake drums underneath vehicles etc. He has no specific injury to his back however. He usually doesn't have any back problems. On my examination he is very uncomfortable and shivering in the bed. He feels very warm to palpation. He hasn't hardly been out of bed all day today. Has not eaten at all. No nausea or vomiting. Denies cough or sputum production. Denies sore throat. Does have a headache. Is not been ill at all the last 2 weeks. Denies any diarrhea. Onset: Today Onset Date: 10/30/18 (Awoke with symptoms of low back pain this morning with muscle spasms if he moves much at all.) Duration: Hour(s): Location: Reports: Back (Diffuse low back pain.) Quality: Reports: Ache, Other Severity: Severe (Muscle spasms 8 out of 10 at times) Improves with: Reports: Rest Worsens with: Reports: Movement Context: Denies: Activity, Exercise, Lifting, Sick Contact, Trauma, Other Associated Symptoms: Reports: Fever/Chills, Headaches, Loss of Appetite, Weakness. Denies: Cough, cough w sputum, Diaphoresis, Malaise, Nausea/Vomiting , Rash, Seizure, Shortness of Breath, Syncope Treatments GENERAL REPAIRER: Reports: Other (see below) (None.) Lower Back Pain Score (Numeric/FACES): 9 - Related Data Allergies Allergy/AdvReac Type Severity Reaction Status Date / Time No Known Allergies Allergy Verified 10/30/18 21:17 Home Meds: Home Meds Metoprolol Tartrate 50 mg PO BID 04/27/15 [History] Doxycycline [Vibramycin] 100 mg PO BID #16 cap 10/31/18 [Rx] oxyCODONE HCl/Acetaminophen [Percocet 5-325 mg Tablet] 1 - 2 each PO Q4H PRN # 20 tablet 10/31/18 [Rx] Past Medical History - Past Health History Medical/Surgical History: Denies Medical/Surgical History Cardiovascular History: Reports: Arrhythmia, Other (See Below) Other Cardiovascular History: Pt had SVT 2 months ago treated in the ED. Gastrointestinal History: Reports: GERD Social & Family History - Family History Family Medical History: Noncontributory - Tobacco Use Smoking Status *Q: Never Smoker - Caffeine Use Caffeine Use: Reports: Coffee, Energy Drinks - Recreational Drug Use Recreational Drug Use: No - Living Situation & Occupation Living situation: Reports: Single Occupation: Employed ED ROS GENERAL - Review of Systems Review Of Systems: See Below Constitutional: Reports: Fever, Chills, Malaise, Weakness, Fatigue HEENT: Reports: No Symptoms Respiratory: Reports: No Symptoms Cardiovascular: Reports: No Symptoms Endocrine: Reports: Fatigue GI/Abdominal: Reports: Decreased Appetite (Has need all today.) : Reports: No Symptoms Musculoskeletal: Reports: Back Pain (Chief complaint is diffuse low back pain which is not able to localize to one side versus the other. Feels like he's getting intermittent severe muscle spasms.) Skin: Reports: No Symptoms Neurological: Reports: No Symptoms Psychiatric: Reports: No Symptoms Hematologic/Lymphatic: Reports: No Symptoms Immunologic: Reports: No Symptoms ED EXAM,LOWER BACK PAIN/INJURY - Physical Exam Exam: See Below Exam Limited By: No Limitations General Appearance: Alert, WD/WN, Moderate Distress (Patient seems to be a moderate distress. He is lying prone on the bed and seems to be exhibiting matteo rigors/chills. He does feel very warm to palpation. Nurses recorded temperature 37.5. Resting pulse is 107. Pulse ox is 100% on room air.) Eye Exam: Bilateral Eye: Normal Inspection Throat/Mouth: Normal Inspection, Normal Lips, Normal Teeth, Normal Oropharynx, Other Head: Atraumatic, Normocephalic (Tongue is moist.) Neck: Normal Inspection, Supple, Non-Tender, Full Range of Motion. No: Lymphadenopathy (L), Lymphadenopathy (R) Respiratory/Chest: No Respiratory Distress, Lungs Clear, Normal Breath Sounds, No Accessory Muscle Use Cardiovascular: Normal Peripheral Pulses, Regular Rate, Rhythm, No Edema, No Gallop, No Murmur, No Rub GI/Abdominal: Normal Bowel Sounds, Soft, Non-Tender, No Organomegaly, No Abnormal Bruit, No Mass, Pelvis Stable Rectal (Males) Exam: Normal Exam, Normal Rectal Tone, Prostate Normal Back Exam: Normal Inspection, Muscle Spasm (She does have muscle spasm on the left side particularly L3-4 and 5 facet joints.). No: CVA Tenderness (L), CVA Tenderness (R), Vertebral Tenderness Extremities: Normal Inspection, Normal Range of Motion, Non-Tender, No Pedal Edema Neurological: Alert, Normal Mood/Affect, Normal Dorsiflexion, CN II-XII Intact Psychiatric: Anxious, Other Skin Exam: Warm, Dry, Intact (Appears to be acutely ill and very warm to palpation.), Normal Color, No Rash Course - Vital Signs Last Recorded V/S: Last Vital Signs Temp 37.7 C 10/30/18 22:10 Pulse 107 H 10/30/18 21:15 Resp 18 10/30/18 21:15 BP 134/81 10/30/18 21:15 Pulse Ox 100 10/30/18 21:15 - Orders/Labs/Meds Orders: Active Orders 24 hr Category Date Time Status Chest 1V Frontal [CR] Stat Exams 10/30/18 21:58 Taken CULTURE BLOOD [BC] Stat Lab 10/30/18 21:40 Received CULTURE BLOOD [BC] Stat Lab 10/30/18 21:50 Received Blood Culture x2 Reflex Set [OM.PC] Stat Oth 10/30/18 21:32 Ordered Labs: Laboratory Tests 10/30/18 10/30/18 10/30/18 Range/Units 21:37 21:37 21:37 WBC 11.61 H (4.23-9.07) K/mm3 RBC 6.32 H (4.63-6.08) M/mm3 Hgb 17.4 (13.7-17.5) gm/L Hct 49.7 (40.1-51.0) % MCV 78.6 L (79.0-92.2) fl MCH 27.5 (25.7-32.2) pg MCHC 35.0 (32.2-35.5) g/dl RDW Std Deviation 37.4 (35.1-43.9) fL Plt Count 258 (163-337) K/mm3 MPV 9.2 L (9.4-12.3) fl Neutrophils % (Manual) 91 H (40-60) % Band Neutrophils % 0 (0-10) % Lymphocytes % (Manual) 8 L (20-40) % Atypical Lymphs % 0 % Monocytes % (Manual) 1 L (2-10) % Eosinophils % (Manual) 0 L (0.8-7.0) % Basophils % (Manual) 0 L (0.2-1.2) Platelet Estimate Adequate RBC Morph Comment Normal ESR 4 (0-15) mm/hr Sodium 138 (136-145) mEq/L Potassium 3.1 L (3.5-5.1) mEq/L Chloride 102 (98-107) mEq/L Carbon Dioxide 20 L (21-32) mEq/L Anion Gap 19.1 H (5-15) BUN 18 (7-18) mg/dL Creatinine 1.6 H (0.7-1.3) mg/dL Est Cr Clr Drug Dosing 65.99 mL/min Estimated GFR (MDRD) 53 (>60) mL/min BUN/Creatinine Ratio 11.3 L (14-18) Glucose 105 (74-106) mg/dL Calcium 9.5 (8.5-10.1) mg/dL Magnesium 1.5 L (1.8-2.4) mg/dl Total Bilirubin 0.9 (0.2-1.0) mg/dL AST 17 (15-37) U/L ALT 30 (16-63) U/L Alkaline Phosphatase 70 (46-116) U/L C-Reactive Protein 3.2 H* (<1.0) mg/dL Total Protein 8.4 H (6.4-8.2) g/dl Albumin 4.4 (3.4-5.0) g/dl Globulin 4.0 gm/dL Albumin/Globulin Ratio 1.1 (1-2) Lipase (73-393) U/L Urine Color (Yellow) Urine Appearance (Clear) Urine pH (5.0-8.0) Ur Specific [place] (1.005-1.030) Urine Protein (Negative) Urine Glucose (UA) (Negative) Urine Ketones (Negative) Urine Occult Blood (Negative) Urine Nitrite (Negative) Urine Bilirubin (Negative) Urine Urobilinogen (0.2-1.0) Ur Leukocyte Esterase (Negative) Urine RBC (0-5) /hpf Urine WBC (0-5) /hpf Ur Epithelial Cells (0-5) /hpf Urine Bacteria (FEW) /hpf Urine Mucus (FEW) /hpf 10/30/18 10/31/18 Range/Units 21:37 00:08 WBC (4.23-9.07) K/mm3 RBC (4.63-6.08) M/mm3 Hgb (13.7-17.5) gm/L Hct (40.1-51.0) % MCV (79.0-92.2) fl MCH (25.7-32.2) pg MCHC (32.2-35.5) g/dl RDW Std Deviation (35.1-43.9) fL Plt Count (163-337) K/mm3 MPV (9.4-12.3) fl Neutrophils % (Manual) (40-60) % Band Neutrophils % (0-10) % Lymphocytes % (Manual) (20-40) % Atypical Lymphs % % Monocytes % (Manual) (2-10) % Eosinophils % (Manual) (0.8-7.0) % Basophils % (Manual) (0.2-1.2) Platelet Estimate RBC Morph Comment ESR (0-15) mm/hr Sodium (136-145) mEq/L Potassium (3.5-5.1) mEq/L Chloride (98-107) mEq/L Carbon Dioxide (21-32) mEq/L Anion Gap (5-15) BUN (7-18) mg/dL Creatinine (0.7-1.3) mg/dL Est Cr Clr Drug Dosing mL/min Estimated GFR (MDRD) (>60) mL/min BUN/Creatinine Ratio (14-18) Glucose (74-106) mg/dL Calcium (8.5-10.1) mg/dL Magnesium (1.8-2.4) mg/dl Total Bilirubin (0.2-1.0) mg/dL AST (15-37) U/L ALT (16-63) U/L Alkaline Phosphatase (46-116) U/L C-Reactive Protein (<1.0) mg/dL Total Protein (6.4-8.2) g/dl Albumin (3.4-5.0) g/dl Globulin gm/dL Albumin/Globulin Ratio (1-2) Lipase 218 (73-393) U/L Urine Color Yellow (Yellow) Urine Appearance Clear (Clear) Urine pH 6.0 (5.0-8.0) Ur Specific [place] 1.025 (1.005-1.030) Urine Protein Trace H (Negative) Urine Glucose (UA) 1+ H (Negative) Urine Ketones Trace H (Negative) Urine Occult Blood Negative (Negative) Urine Nitrite Negative (Negative) Urine Bilirubin Negative (Negative) Urine Urobilinogen 0.2 (0.2-1.0) Ur Leukocyte Esterase Negative (Negative) Urine RBC 0-5 (0-5) /hpf Urine WBC 0-5 (0-5) /hpf Ur Epithelial Cells Not seen (0-5) /hpf Urine Bacteria Few (FEW) /hpf Urine Mucus Many H (FEW) /hpf Meds: Medications Discontinued Medications Generic Name Dose Route Start Last Admin Trade Name Freq PRN Reason Stop Dose Admin Acetaminophen 975 mg 10/30/18 21:57 10/30/18 22:10 Tylenol PO 10/30/18 21:58 975 mg NOW ONE Administration Doxycycline Hyclate 200 mg 10/31/18 00:03 10/31/18 00:18 Vibramycin PO 10/31/18 00:04 200 mg ONETIME ONE Administration Hydromorphone HCl 1 mg 10/30/18 21:31 10/30/18 21:42 Dilaudid IVPUSH 10/30/18 21:32 1 mg ONETIME ONE Administration Dextrose/Sodium Chloride 1,000 mls @ 999 mls/hr 10/30/18 21:30 10/30/18 21:40 Dextrose 5%-Normal Saline IV 999 mls/hr ASDIRECTED SANDRA Administration Dextrose/Lactated Ringer's 1,000 mls @ 999 mls/hr 10/30/18 22:30 10/30/18 22: 41 Dextrose 5%-Lactated Ringers IV 999 mls/hr ASDIRECTED SANDRA Administration Potassium Chloride 10 meq/ 100 mls @ 100 mls/hr 10/30/18 22:31 10/30/18 22:41 Premix IV 10/30/18 23:30 100 mls/hr ONETIME ONE Administration Ketorolac Tromethamine 30 mg 10/30/18 21:45 10/30/18 21:45 Toradol IVPUSH 30 mg ONETIME SANDRA Administration Ondansetron HCl 4 mg 10/30/18 21:31 Zofran Odt PO 10/30/18 21:32 ONETIME ONE Ondansetron HCl 4 mg 10/30/18 21:35 10/30/18 21:41 Zofran IVPUSH 10/30/18 21:36 4 mg ONETIME ONE Administration Ondansetron HCl Confirm 10/30/18 21:36 10/30/18 22:12 Zofran Administered 10/30/18 21:37 Not Given Dose 4 mg .ROUTE .STK-MED ONE Oxycodone/Acetaminophen 2 tab 10/31/18 00:23 10/31/18 00:29 Percocet 325-5 Mg PO 10/31/18 00:24 2 tab ONETIME ONE Administration - Radiology Interpretation Free Text/Narrative:: 23-year-old male presents to the ED with chief complaint of diffuse low back pain with muscle spasms since he woke this morning. He's been in bed most of the day and hasn't hardly eaten at all. When I first examined him he was exhibiting rigors/chills in bed. Her warm to palpation. Denies cough or sputum production. Has a mild headache. He has not been ill at all in the last 2 weeks. He does have some mild muscle spasm left lower back from L3-L5 facet joints. Mild tenderness in both sacroiliac joint as well. However I think most of his symptoms are secondary to infectious process. No clinical source of the infection is apparent on exam. Labs including blood cultures 2 will be obtained. Urinalysis is on chest x-ray. IV will be D5 normal saline at open. Given Dilaudid 1 mg IV with Zofran 4 mg IV for pain relief and Toradol 30 mg IV. Also given Tylenol 975 mg by mouth for fever relief. - Re-Assessments/Exams Free Text/Narrative Re-Assessment/Exam: 10/30/18 22:19 patient is looking and feeling much better. He remains minimally febrile at this time. Portable chest x-ray done and is negative for any signs of pneumonia. 10/30/18 22:20 White count is 11.61 with 91% neutrophils and no band cells reported. Hemoglobin is 17.4 with hematocrit of 49.7. MCV is slightly low at 78.6. Platelet count is 258,000. Sodium 138 with potassium low at 3.1. Chloride 102 with a bicarbonate of 20. Anion gap is elevated at 19.1. BUNs 18 with a creatinine of 1.6. GFR is 53. Glucose is 105. Calcium is 9.5. Magnesium is low at 1.5. 11 0.9. AST is 17 with an ALT of 30. Alkaline phosphatase is normal at 70. C-reactive protein is elevated at 3.2. Total protein is 8.4.. Patient has not yet been able to void 10/31/18 00:15: He does feel like he has to void and therefore urinalysis will be obtained. I doubt that there will be any signs of infection I'm going to let him go home. He walked to the bathroom actually quite well with very minimal pain in his low back at this time. 10/31/18 00:51 urinalysis is completely normal. Departure - Departure Time of Disposition: 00:01 Disposition: Home, Self-Care 01 Condition: Fair Clinical Impression: Acute febrile illness, Strain of muscle, fascia and tendon of lower back, initial encounter - Discharge Information *PRESCRIPTION DRUG MONITORING PROGRAM REVIEWED*: Not Applicable *COPY OF PRESCRIPTION DRUG MONITORING REPORT IN PATIENT JAMES: Not Applicable Prescriptions: Doxycycline [Vibramycin] 100 mg PO BID #16 cap oxyCODONE HCl/Acetaminophen [Percocet 5-325 mg Tablet] 1 - 2 each PO Q4H PRN # 20 tablet PRN Reason: pain relief. Instructions: Low Back Strain Referrals: PCP,None [Ordering Only Provider] - Forms: ED Department Discharge, ED Return to Work/School Form Additional Instructions: Evaluation the emergency room tonight in regards to acute onset of severe low back pain muscle spasms. When you were seen in the ED were identified to be suffering severe chills and rigors and definitely had a fairly high fever. Lab work does reveal an elevated white blood cell count and markers for bacterial infection although the source of this infection is yet to be identified. You may well start coughing in the next couple of days. Chest x-ray done in the ED did not show any sign of pneumonia. Lab tests did not show no any significant infection in the abdomen. You're treated with 2 L of intravenous fluids a you were found to be significantly dehydrated and also given potassium supplement due to potassium being low from not being able to eat. He received pain medications and anti-inflammatories for your low back pain which did help modify the pain. I would suggest a couple of days off work and in no was given in this regard to allow your back pain to settle. Normally takes a back strain about 5-7 days to settle down. In regards to your fever and infective process I would suggest Motrin 600 mg every 6 hours for fever relief and to relieve pain and inflammation in your lower back. Doxycycline 100 mg twice daily for the next 8 days to clear up infection. First dose was provided in the ED. You need to pick up man a prescription for pain medication Percocet later tomorrow for pain relief. 2 tablets were sent home with you from the ED in case you need them later this morning before the drugstore opens up. Follow-up with personal physician if any further problems occur or you are not markedly improved in terms of fever and/or chills in the next 48 hours - My Orders Last 24 Hours: My Active Orders 10/30/18 21:32 Blood Culture x2 Reflex Set [OM.PC] Stat 10/30/18 21:40 CULTURE BLOOD [BC] Stat 10/30/18 21:50 CULTURE BLOOD [BC] Stat 10/30/18 21:58 Chest 1V Frontal [CR] Stat - Assessment/Plan Last 24 Hours: My Active Orders 10/30/18 21:32 Blood Culture x2 Reflex Set [OM.PC] Stat 10/30/18 21:40 CULTURE BLOOD [BC] Stat 10/30/18 21:50 CULTURE BLOOD [BC] Stat 10/30/18 21:58 Chest 1V Frontal [CR] Stat
[2018-10-30] MEDS ORDERED: Ketorolac 30 MG/ML SDV IVPUSH SCH (21:45)
[2018-10-30] MEDS ORDERED: Acetaminophen 325 MG Tab PO ONE (21:57)
[2018-10-30] MEDS ORDERED: Dextrose 5%-Lactated Ringers 1,000 ML IV SCH (22:30)
[2018-10-30] MEDS ORDERED: Potassium Chloride 10 MEQ in Premix Bag 1 BAG IV ONE (22:31)
[2018-10-31] MEDS ORDERED: Doxycycline 100 MG Cap PO ONE (00:03)
[2018-10-31] MEDS ORDERED: Acetaminophen/oxyCODONE 325-5 MG Tab PO ONE (00:23)
--- NOTE | 2018-10-31 08:17 | CR ---
Chest: Frontal view of the chest was obtained. Comparison: Prior chest x-ray of 09/17/18. Heart size and mediastinum are normal. Lungs are clear. Bony structures are unremarkable. Impression: 1. Nothing acute is seen on frontal chest x-ray. Diagnostic code #1
== END 2018-10-31 00:35 | disposition home or self-care (01) ==
LOC: JD.ED 21:07
DX: S39.012A Strain of muscle, fascia and tendon of lower back, initial encounter (principal); R50.9 Fever, unspecified; X50.1XXA Overexertion from prolonged static or awkward postures, initial encounter; Y99.0 Civilian activity done for income or pay
CPT/HCPCS: 36415; 71045; 80053; 81001; 83690; 83735; 85007; 85027; 85652; 86140; 87040; 96361; 96365; 96375; 99283; A9270; J1170; J1885; J2405; J3480; J7042; 99284

== ENCOUNTER 2018-11-17 16:53 | Emergency (ER) | payer BC ==
[2018-11-17 17:29] VITALS: BP 120/80
[2018-11-17] MEDS ORDERED: Ketorolac 30 MG/ML SDV IM ONE (18:41)
[2018-11-17] MEDS ORDERED: Orphenadrine 100 MG Tab.ER PO ONE (18:41)
--- NOTE | 2018-11-17 18:56 | EDM.PDOC ---
ED HPI GENERAL MEDICAL PROBLEM - General Chief Complaint: Back Pain or Injury Stated Complaint: BACK SPASMS Time Seen by Provider: 11/17/18 18:07 Source of Information: Reports: Patient, RN Notes Reviewed History Limitations: Reports: No Limitations - History of Present Illness INITIAL COMMENTS - FREE TEXT/NARRATIVE: Patient is a 23-year-old male who presents to the ED for back spasms. He states he has had this pain in the past before. This particular episode started around 4 hours ago. He states that he feels intense sharp pains in his lower back that are worse on the right side and do radiate to his right leg. He is unsure of any traumatic incident that may have precipitated these spasms. He has been trying to take ibuprofen at home but this has not provided much relief. He rates his pain at a 7 out of 10 today. He states that he did try to go to the walk-in clinic but they were not open at this time. He has not lost control of his bowel or bladder nor does he suggest that there is any numbness or tingling in his extremities. Lower Back Pain Score (Numeric/FACES): 7 - Related Data Allergies Allergy/AdvReac Type Severity Reaction Status Date / Time No Known Allergies Allergy Verified 11/17/18 17:30 Home Meds: Home Meds Metoprolol Tartrate 50 mg PO BID 04/27/15 [History] Doxycycline [Vibramycin] 100 mg PO BID #16 cap 10/31/18 [Rx] Orphenadrine [Norflex] 100 mg PO BID PRN #20 tab 11/17/18 [Rx] Past Medical History - Past Health History Medical/Surgical History: Denies Medical/Surgical History Cardiovascular History: Reports: Arrhythmia, Other (See Below) Other Cardiovascular History: Pt had SVT 2 months ago treated in the ED. Gastrointestinal History: Reports: GERD Social & Family History - Family History Family Medical History: Noncontributory - Tobacco Use Smoking Status *Q: Never Smoker Second Hand Smoke Exposure: No - Caffeine Use Caffeine Use: Reports: None - Recreational Drug Use Recreational Drug Use: No - Living Situation & Occupation Living situation: Reports: Single Occupation: Employed ED ROS GENERAL - Review of Systems Review Of Systems: See Below Constitutional: Reports: No Symptoms HEENT: Reports: No Symptoms Respiratory: Reports: No Symptoms Cardiovascular: Reports: No Symptoms Endocrine: Reports: No Symptoms GI/Abdominal: Reports: No Symptoms : Reports: No Symptoms Musculoskeletal: Reports: Back Pain (low back and radiation to right leg) Skin: Reports: No Symptoms Neurological: Reports: No Symptoms Psychiatric: Reports: No Symptoms Hematologic/Lymphatic: Reports: No Symptoms Immunologic: Reports: No Symptoms ED EXAM,LOWER BACK PAIN/INJURY - Physical Exam Exam: See Below Exam Limited By: No Limitations General Appearance: Alert, WD/WN, No Apparent Distress Ears: Normal External Exam Nose: Normal Inspection Throat/Mouth: Normal Inspection, Normal Oropharynx, No Airway Compromise Head: Atraumatic, Normocephalic Neck: Normal Inspection Respiratory/Chest: No Respiratory Distress, Lungs Clear, Normal Breath Sounds, No Accessory Muscle Use, Chest Non-Tender Cardiovascular: Normal Peripheral Pulses, Regular Rate, Rhythm, No Murmur GI/Abdominal: Normal Bowel Sounds, Soft, Non-Tender, No Distention, No Mass Extremities: Normal Inspection, Normal Capillary Refill Neurological: Alert, Normal Mood/Affect, Normal Dorsiflexion, Normal Plantar Flexion, Normal Gait, No Motor/Sensory Deficits, Oriented x 3, Straight Leg Raise (L), Straight Leg Raise (R). No: Saddle Anesthesia Psychiatric: Normal Affect, Normal Mood Skin Exam: Warm, Dry, Intact, Normal Color Course - Vital Signs Last Recorded V/S: Last Vital Signs Temp 98.5 F 11/17/18 17:26 Pulse 75 11/17/18 17:26 Resp 16 11/17/18 17:26 BP 120/80 11/17/18 17:26 Pulse Ox 99 11/17/18 17:26 - Orders/Labs/Meds Meds: Medications Discontinued Medications Generic Name Dose Route Start Last Admin Trade Name Andres PRN Reason Stop Dose Admin Ketorolac Tromethamine 30 mg 11/17/18 18:41 11/17/18 18:51 Toradol IM 11/17/18 18:42 30 mg ONETIME ONE Administration Orphenadrine Citrate 100 mg 11/17/18 18:41 11/17/18 18:52 Norflex PO 11/17/18 18:42 100 mg ONETIME ONE Administration - Re-Assessments/Exams Free Text/Narrative Re-Assessment/Exam: 11/17/18 18:56 Patient presents to ED for back spasms. I have ordered 30 mg IM Toradol and 100 mg Norflex for management of this. He was requesting Percocet as he received this from his last visit but I do not feel comfortable starting with this medication for initial management of back spasms without acute traumatic injury. 11/17/18 19:39 Patient was reassessed at bedside and he states that his pain is tolerable. We will provide him a prescription for Norflex and recommend ibuprofen and Tylenol for further pain relief. Departure - Departure Time of Disposition: 19:39 Disposition: Home, Self-Care 01 Condition: Fair Clinical Impression: Muscle spasm of back - Discharge Information *PRESCRIPTION DRUG MONITORING PROGRAM REVIEWED*: No *COPY OF PRESCRIPTION DRUG MONITORING REPORT IN PATIENT JAMES: No Instructions: Muscle Cramps and Spasms, [id number] Referrals: Lul Collins Jr, MD [Primary Care Provider] - Forms: ED Department Discharge Additional Instructions: You have been evaluated in the ED for your back spasms. Please use ice/heat as tolerated to the affected area. You may take tylenol 500 mg or ibuprofen 600mg q6 hrs for pain relief. Please do so until you have a tolerable level of pain with activity. Do not exceed 4000mg tylenol, Do not exceed 3200mg ibuprofen in a 24 hour time period. Please take the Norflex BID for muscle spasms. Please return to ED if your symptoms should change or worsen.
== END 2018-11-17 19:47 | disposition home or self-care (01) ==
LOC: JD.ED 16:53
DX: M62.830 Muscle spasm of back (principal)
CPT/HCPCS: 96372; 99283; A9270; J1885

== ENCOUNTER 2019-09-14 19:06 | Emergency (ER) | payer SELFPAY ==
--- NOTE | 2019-09-14 20:52 | EDM.PDOC ---
ED HPI GENERAL MEDICAL PROBLEM - General Chief Complaint: Cardiovascular Problem Stated Complaint: CHEST PAIN Time Seen by Provider: 09/14/19 19:30 Source of Information: Reports: Patient History Limitations: Reports: No Limitations (To a somewhat suboptimal historian.) - History of Present Illness INITIAL COMMENTS - FREE TEXT/NARRATIVE: TRIAGE NOTE -- Pt c/o chest pain and palpitations for the past 30 min. pt states has a hx of irregular heart rate and states earlier felt like heart was beating out of his chest. [ End ] The patient had a 30-minute episode of rapid heart rate. He does not know how fast his heart was going and did not take his pulse. There was chest pain which seem to be associated with the palpitations. There was no sweating. No radiation. The chest pain complaint is somewhat vague. There is a history of atypical chest pain. Neither the palpitations nor the chest pain interfered with the patient's activity. He could get up and move around without difficulty. Patient did not take any medication in an attempt to break it. He did try Valsalva maneuvers without success. Only medication is metoprolol which he does take to moderate his SVTs. He has a development eng apparently in [place] but has not seen a development eng for 2 years. Chest Pain Score (Numeric/FACES): 8 - Related Data Allergies Allergy/AdvReac Type Severity Reaction Status Date / Time No Known Allergies Allergy Verified 09/14/19 19:15 Home Meds: Home Meds Metoprolol Succinate 50 mg PO DAILY #30 tab.er.24h 09/14/19 [Rx] Past Medical History - Past Health History Medical/Surgical History: Denies Medical/Surgical History HEENT History: Reports: Impaired Vision Other HEENT History: wears glasses Cardiovascular History: Reports: Arrhythmia, Other (See Below) Other Cardiovascular History: Pt had SVT 2 months ago treated in the ED. Gastrointestinal History: Reports: GERD Social & Family History - Family History Family Medical History: Noncontributory - Tobacco Use Smoking Status *Q: Unknown Ever Smoked - Caffeine Use Caffeine Use: Reports: None - Living Situation & Occupation Living situation: Reports: Single Occupation: Employed ED ROS GENERAL - Review of Systems Review Of Systems: Comprehensive ROS is negative, except as noted in HPI. ED EXAM, GENERAL - Physical Exam Exam: See Below Exam Limited By: No Limitations General Appearance: Alert, WD/WN, No Apparent Distress Eye Exam: Bilateral Eye: EOMI, PERRL Ears: Normal External Exam Nose: Normal Inspection Throat/Mouth: Normal Inspection Head: Atraumatic, Normocephalic Neck: Normal Inspection, Supple Respiratory/Chest: No Respiratory Distress, Lungs Clear Cardiovascular: Regular Rate, Rhythm (Though the rate does at times get a little over 100 at rest.) GI/Abdominal: Soft, Non-Tender Back Exam: Normal Inspection Extremities: Normal Inspection, No Pedal Edema Neurological: Alert, Oriented Psychiatric: Normal Affect Skin Exam: Warm, Dry Course - Vital Signs Text/Narrative:: Turns out that the patient has not taken metoprolol for over a year. He does not have any at home to take. We will go ahead and administer 50 mg metoprolol succinate in the ER and put him on that on a daily basis. Strict precautions for return to ER. Recommend close follow-up by cardiology. His primary can facilitate that referral. Last Recorded V/S: Last Vital Signs Temp 36.1 C 09/14/19 19:15 Pulse 83 09/14/19 21:33 Resp 17 09/14/19 19:15 BP 141/98 H 09/14/19 21:33 Pulse Ox 100 09/14/19 19:15 - Orders/Labs/Meds Orders: Active Orders 24 hr Category Date Time Status EKG Documentation Completion [RC] STAT Care 09/14/19 19:34 Active Chest 1V Frontal [CR] Stat Exams 09/14/19 19:34 Taken Labs: Laboratory Tests 09/14/19 09/14/19 09/14/19 Range/Units 19:50 20:15 20:15 Sodium 141 (136-145) mEq/L Potassium 3.5 (3.5-5.1) mEq/L Chloride 105 (98-107) mEq/L Carbon Dioxide 24 (21-32) mEq/L Anion Gap 15.5 H (5-15) BUN 18 (7-18) mg/dL Creatinine 1.2 (0.7-1.3) mg/dL Est Cr Clr Drug Dosing 99.35 mL/min Estimated GFR (MDRD) > 60 (>60) mL/min BUN/Creatinine Ratio 15.0 (14-18) Glucose 119 H (74-106) mg/dL Calcium 9.0 (8.5-10.1) mg/dL Total Bilirubin 0.3 (0.2-1.0) mg/dL AST 16 (15-37) U/L ALT 28 (16-63) U/L Alkaline Phosphatase 65 (46-116) U/L Troponin I < 0.017 (0.00-0.056) ng/mL Total Protein 8.1 (6.4-8.2) g/dl Albumin 4.4 (3.4-5.0) g/dl Globulin 3.7 gm/dL Albumin/Globulin Ratio 1.2 (1-2) TSH 3rd Generation 1.126 (0.358-3.74) uIU/mL Urine Color Yellow (Yellow) Urine Appearance Clear (Clear) Urine pH 7.0 (5.0-8.0) Ur Specific [place] > or = 1.030 (1.005-1.030) Urine Protein Negative (Negative) Urine Glucose (UA) Negative (Negative) Urine Ketones Trace H (Negative) Urine Occult Blood Negative (Negative) Urine Nitrite Negative (Negative) Urine Bilirubin Negative (Negative) Urine Urobilinogen 0.2 (0.2-1.0) Ur Leukocyte Esterase Negative (Negative) Urine Opiates Screen Negative (EXKOTD=664) Ur Buprenorphine Scrn Negative (CUTOFF=10) Ur Oxycodone Screen Negative (UTN7NZ=479) Urine Methadone Screen Negative (FUQ6JR=387) Ur Propoxyphene Screen Negative (KIZJQL=457) Ur Barbiturates Screen Negative (TSFNCZ=379) Ur Tricyclics Screen Negative (MNQJKQ=399) Ur Phencyclidine Scrn Negative (CUTOFF=25) Ur Amphetamine Screen Negative (BYFEUA=697) U Methamphetamines Scrn Negative (FFWDHE=841) U Benzodiazepines Scrn Negative (ZPCTYL=564) U Cocaine Metab Screen Negative (SXPDED=468) U Marijuana (THC) Screen Negative (CUTOFF=50) Meds: Medications Discontinued Medications Generic Name Dose Route Start Last Admin Trade Name Freq PRN Reason Stop Dose Admin Metoprolol Succinate 50 mg 09/14/19 21:23 09/14/19 21:33 Toprol Xl PO 09/14/19 21:24 50 mg ONETIME ONE Administration Departure - Departure Time of Disposition: 21:25 Disposition: Home, Self-Care 01 Condition: Good Clinical Impression: Paroxysmal SVT (supraventricular tachycardia), Atypical chest pain Prescriptions: Metoprolol Succinate 50 mg PO DAILY #30 tab.er.24h Referrals: Lul Collins Jr, MD [Primary Care Provider] - Forms: ED Department Discharge Additional Instructions: You have been monitored almost the entire time you have been in the emergency department and there are no dysrhythmias requiring emergency intervention. However in light of your history and the success of metoprolol and controlling her rate you have received a dose of 50 mg of metoprolol succinate in the ER which is good for 24 hours and you have a prescription to take the same medication on a daily basis. Strict precautions return to ER, do not hesitate to call an ambulance for matteo chest pain especially with sweating shortness of breath inability to get around or any other troubling concern. Recommend close follow-up by cardiology. See your primary and have primary facilitate that referral. Preferably you should be seen this coming week. Sepsis Event Note - Evaluation Sepsis Screening Result: No Definite Risk - Focused Exam Vital Signs: Vital Signs Temp Pulse Pulse Resp BP BP Pulse Ox 09/14/19 21:33 83 141/98 H 09/14/19 19:15 36.1 C 88 17 141/91 H 100 Date Exam was Performed: 09/14/19 Time Exam was Performed: 21:41 - My Orders Last 24 Hours: My Active Orders 09/14/19 19:34 EKG Documentation Completion [RC] STAT Chest 1V Frontal [CR] Stat - Assessment/Plan Last 24 Hours: My Active Orders 09/14/19 19:34 EKG Documentation Completion [RC] STAT Chest 1V Frontal [CR] Stat
[2019-09-14] MEDS ORDERED: Metoprolol Succinate 50 MG Tab.ER PO ONE (21:23)
[2019-09-14 21:35] VITALS: BP 141/98; PULSE 83
--- NOTE | 2019-09-16 07:12 | CR ---
Chest: Portable view of the chest was obtained. Comparison: Prior chest x-ray of 10/30/18. Heart size and mediastinum are normal. Lungs are clear. Bony structures appear grossly intact. Impression: 1. Nothing acute is appreciated on portable chest x-ray. Diagnostic code #1 This report was dictated in [place] Standard Time
== END 2019-09-14 21:50 | disposition home or self-care (01) ==
LOC: JD.ED 19:06
DX: I47.1 Supraventricular tachycardia (principal); R07.89 Other chest pain; Z79.899 Other long term (current) drug therapy
CPT/HCPCS: 36415; 71045; 80053; 80306; 81003; 84443; 84484; 93005; 99285; A9270; 93010; 99284

== ENCOUNTER 2021-02-23 21:45 | Emergency (ER) | payer SELFPAY ==
[2021-02-23 22:01] VITALS: BP 143/101
[2021-02-23] MEDS ORDERED: Ibuprofen 600 MG Tab PO ONE (22:52)
--- NOTE | 2021-02-23 22:54 | EDM.PDOC ---
ED HPI GENERAL MEDICAL PROBLEM - General Chief Complaint: Chest Pain Stated Complaint: CHEST PAIN/RACING HEART BEAT Time Seen by Provider: 02/23/21 22:23 Source of Information: Reports: Patient, Family () History Limitations: Reports: No Limitations - History of Present Illness INITIAL COMMENTS - FREE TEXT/NARRATIVE: Mr. Olmstead is a very pleasant 26-year-old gentleman who now presents the ED stating that he developed the sensation of feeling hot, diaphoretic, rapid palpitations, and left-sided chest pain around 20:30 this evening. He describes the left-sided chest pain as a pressure sensation, although states that it is a pain, not a discomfort. He states that it does not radiate, but that it is made worse by taking a deep breath. The patient states that he has had similar episodes approximately once or twice a year, particularly if he gets physically hot, since 2015. An ECG dated 02/20/2017 found him to be in SVT, while an ECG dated 09/29/2017 found him to be in atrial fibrillation with RVR. He states that he saw a Machine Quilt Stuffer, and underwent a cardiac stress test and a 1 month Holter monitor, which were all reportedly unremarkable. He states that he has never undergone an echocardiogram or coronary angiogram. He was previously prescribed metoprolol succinate 50 mg daily, however, he was later told to take it only if he develops palpitations. He states that the last time he took it was about 1 year ago. In the past, he was instructed to perform a Valsalva maneuver if he develops the symptoms, therefore he did so around 21:30. After the second Valsalva maneuver, his rapid palpitations, feeling hot, and diaphoresis ceased, however, his left- sided chest pain persisted, wherefore he came to the ED for evaluation. The patient states that he was unable to find his metoprolol tonight, and therefore has not taken anything to address his symptoms. Here in the ED, the patient's initial BP is found to be mildly elevated at 143/101, otherwise, he is hemodynamically stable, afebrile, saturating 100% on room air. He appears to be comfortable, in no acute distress. Prior to this evening, the patient denies having a recent fever, chills, sore throat, ear pain, nasal or sinus congestion, cough, dyspnea, chest pain, palpitations, nausea, vomiting, constipation, diarrhea, abdominal pain, urinary symptoms, recent weight gain or weight loss, recent bloody bowel movements or black bowel movements, recent joint aches, headaches, or rashes. The patient's PCP was Dr. Lul Collins; he has not found a replacement PCP. He does not recall the name of his Machine Quilt Stuffer in [place]. Left Chest Pain Score (Numeric/FACES): 6 - Related Data Allergies Allergy/AdvReac Type Severity Reaction Status Date / Time No Known Allergies Allergy Verified 02/23/21 22:01 Home Meds: Home Meds Metoprolol Succinate 50 mg PO DAILY #30 tab.er.24h 09/14/19 [Rx] Past Medical History HEENT History: Reports: Impaired Vision (wears glasses) Cardiovascular History: Reports: Arrhythmia (paroxysmal SVT, A-fib) Gastrointestinal History: Reports: GERD - Infectious Disease History Infectious Disease History: Reports: Novel Coronavirus Social & Family History - Tobacco Use Tobacco Use Status *Q: Never Tobacco User Second Hand Smoke Exposure: No - Caffeine Use Caffeine Use: Reports: Soda - Alcohol Use Alcohol Use History: Yes Alcohol Use Frequency: Socially - Recreational Drug Use Recreational Drug Use: Yes Drug Use in Last 12 Months: No Recreational Drug Type: Reports: Cocaine (can't recall how or when last used), Marijuana/Hashish (last smoked 2017 or 2018), Methamphetamine (can't recall when last smoked), Other (see below) (Last abused hydrocodone in 2019) - Living Situation & Occupation Living situation: Reports: , with Spouse Occupation: Employed ([employer]) ED ROS GENERAL - Review of Systems Review Of Systems: Comprehensive ROS is negative, except as noted in HPI. ED EXAM, GENERAL - Physical Exam Exam: See Below Exam Limited By: No Limitations General Appearance: Alert, WD/WN, No Apparent Distress Eye Exam: Bilateral Eye: EOMI, Normal Inspection Ears: Normal External Exam, Hearing Grossly Normal Nose: Normal Inspection Throat/Mouth: Normal Inspection, Normal Lips, Normal Voice, No Airway Compromise Head: Atraumatic, Normocephalic Neck: Normal Inspection, Full Range of Motion Respiratory/Chest: No Respiratory Distress, Lungs Clear, Normal Breath Sounds, No Accessory Muscle Use, Other (Reproducible left sided chest pain with palpation of the left pectoralis muscle. The same pain is also induced with the patient pressing his hands together with outstretched arms, or crossing his left upper extremity across his chest.) Cardiovascular: Normal Peripheral Pulses, Regular Rate, Rhythm, No Edema, No Gallop, No JVD, No Murmur, No Rub Peripheral Pulses: 3+: Radial (L), Radial (R) GI/Abdominal: Normal Bowel Sounds, Soft, Non-Tender, No Organomegaly, No Distention, No Abnormal Bruit, No Mass Back Exam: Normal Inspection, Full Range of Motion, NT Extremities: Normal Inspection, Normal Range of Motion, No Pedal Edema, Normal Capillary Refill Neurological: Alert, Oriented, Normal Cognition, No Motor/Sensory Deficits Psychiatric: Normal Affect Skin Exam: Warm, Dry, Intact, Normal Color, No Rash #1 Interpretation EKG Date: 02/23/21 Time: 21:54 Rhythm: NSR Rate (Beats/Min): 86 [place]: Normal P-Wave: Present QRS: Normal ST-T: Normal QT: Normal Comparison: No Change (09/14/2019) Course - Vital Signs Last Recorded V/S: Last Vital Signs Temp 36.8 C 02/23/21 21:58 Pulse 69 02/24/21 00:00 Resp 19 02/24/21 00:00 BP 143/101 H 02/23/21 21:58 Pulse Ox 95 02/24/21 00:00 - Orders/Labs/Meds Orders: Active Orders 24 hr Category Date Time Status Chest 2V [CR] Stat Exams 02/23/21 22:49 Taken Labs: Laboratory Tests 02/23/21 02/23/21 02/23/21 Range/Units 22:03 22:03 22:03 WBC 8.53 (4.23-9.07) K/mm3 RBC 5.93 (4.63-6.08) M/mm3 Hgb 16.4 (13.7-17.5) gm/dl Hct 46.7 (40.1-51.0) % MCV 78.8 L (79.0-92.2) fl MCH 27.7 (25.7-32.2) pg MCHC 35.1 (32.2-35.5) g/dl RDW Std Deviation 36.6 (35.1-43.9) fL Plt Count 283 (163-337) K/mm3 MPV 9.4 (9.4-12.3) fl Neutrophils % (Manual) 58 (40-60) % Band Neutrophils % 1 (0-10) % Lymphocytes % (Manual) 20 (20-40) % Atypical Lymphs % 4 % Monocytes % (Manual) 14 H (2-10) % Eosinophils % (Manual) 3 (0.8-7.0) % Basophils % (Manual) 0 L (0.2-1.2) Platelet Estimate Adequate RBC Morph Comment Normal D-Dimer, Quantitative < 0.19 L (0.19-0.50) mg/L Sodium 141 (136-145) mEq/L Potassium 3.8 (3.5-5.1) mEq/L Chloride 105 (98-107) mEq/L Carbon Dioxide 24 (21-32) mEq/L Anion Gap 15.8 H (5-15) BUN 17 (7-18) mg/dL Creatinine 1.4 H (0.7-1.3) mg/dL Est Cr Clr Drug Dosing 83.67 mL/min Estimated GFR (MDRD) > 60 (>60) mL/min BUN/Creatinine Ratio 12.1 L (14-18) Glucose 116 H (70-99) mg/dL Calcium 9.6 (8.5-10.1) mg/dL Magnesium 2.0 (1.8-2.4) mg/dL Total Bilirubin 0.4 (0.2-1.0) mg/dL AST 22 (15-37) U/L ALT 39 (16-63) U/L Alkaline Phosphatase 62 (46-116) U/L Troponin I < 0.017 (0.00-0.056) ng/mL Total Protein 8.2 (6.4-8.2) g/dl Albumin 4.4 (3.4-5.0) g/dl Globulin 3.8 gm/dL Albumin/Globulin Ratio 1.2 (1-2) TSH 3rd Generation 3.744 H (0.358-3.74) uIU/mL Meds: Medications Discontinued Medications Generic Name Dose Route Start Last Admin Trade Name Freq PRN Reason Stop Dose Admin Ibuprofen 600 mg 02/23/21 22:52 02/23/21 22:58 Ibuprofen 600 Mg Tab PO 02/23/21 22:53 600 mg ONETIME ONE Administration - Re-Assessments/Exams Free Text/Narrative Re-Assessment/Exam: 02/23/21 22:50 As above, the patient felt hot, diaphoretic, then developed rapid palpitations with left-sided chest pain. After about 1 hour, he began bearing down, and after he tried that twice, his palpitations, feeling hot, and diaphoresis resolved, however, his left-sided chest pain persisted. He has experienced similar symptoms about once or twice a year since 2016, with a negative cardiac stress test and Holter monitor. He has been off metoprolol for about a year. He states that he always gets the left-sided chest pain after an episode of palpitations, essentially unchanged from tonight. An ECG, obtained at triage, shows a NSR with no ischemic changes. On examination, the patient has reproducible left-sided chest pain to both palpation of the left pectoralis muscle, but also movement of his left upper extremity. His exam is otherwise unremarkable. I have ordered a work-up that includes several blood tests and a chest x-ray. In the meantime, the patient will be given some ibuprofen to treat his musculoskeletal left-sided chest pain. 02/23/21 23:50 Two-view chest radiograph appears to be grossly normal. The cardiac silhouette is within normal limits. No pulmonary vascular congestion. No pleural effusions. No focal infiltrate. No pneumothorax. Formal read per the Radiologist pending. The patient's CBC is unremarkable. His CMP is remarkable for an anion gap slightly elevated at 15.8, but with a bicarbonate normal at 24. His Cr is somewhat elevated at 1.4, but with a BUN normal at 17, and slight hyperglycemia of 116, with remainder of his CMP being unremarkable. His magnesium level is within normal limits at 2.0. His TSH is elevated at 3.744. His troponin is undetectably low. His D-dimer is undetectably low. 02/23/21 23:54 Test results discussed with the patient. As above, with the exception of an elevated TSH, today's work-up is completely unremarkable. Going forward, he can take OTC ibuprofen as needed for his left chest discomfort. I would like him to follow-up with his Machine Quilt Stuffer in [place], whose name he does not recall, but I would also like him to establish a PCP. I will refer him to our clinic. They can recheck his TSH. Departure - Departure Time of Disposition: 23:54 Disposition: Home, Self-Care 01 Condition: Good (Rapid palpitations) Clinical Impression: Rapid palpitations, Musculoskeletal chest pain, Elevated TSH Instructions: Nonspecific Chest Pain, Adult, [id number], Palpitations, [id number] Referrals: PCP,None [Primary Care Provider] - Liyah Flores NP [Nurse Practitioner] - Forms: ED Department Discharge Additional Instructions: You were seen in the emergency room after you felt hot and sweaty, then develop ed a sensation of rapid palpitations and left-sided chest pain. Your feeling hot and sweaty and rapid palpitations resolved after you bore down a couple of times, but your left-sided chest pain continued. Work-up in the ER included numerous blood tests, a chest x-ray, and an ECG. Your TSH (thyroid-stimulating hormone) level was found to be mildly elevated at 3.744, indicating that you might have hypothyroidism, however, we do not diagnose hypothyroidism based on a single TSH reading. The remainder of your work-up was unremarkable. Based on your history, physical exam, and ER tests, your rapid palpitations were most likely due to an episode of SVT, like you have had in the past. We recommend that you follow-up with your spotter in [place], for further evaluation. We also recommend that you establish a PCP. Please follow-up with Liyah Flores NP, or one of the other providers in the clinic, at the next available appointment. They can recheck your TSH level. If any other problems, please do not hesitate to return to the ER. Sepsis Event Note (ED) - Evaluation Sepsis Screening Result: No Definite Risk - Focused Exam Vital Signs: Vital Signs Temp Pulse Resp BP Pulse Ox 02/24/21 00:00 69 19 95 02/23/21 21:58 36.8 C 90 20 143/101 H 100 - My Orders Last 24 Hours: My Active Orders 02/23/21 22:49 Chest 2V [CR] Stat - Assessment/Plan Last 24 Hours: My Active Orders 02/23/21 22:49 Chest 2V [CR] Stat
[2021-02-24 00:29] VITALS: PULSE 69
--- NOTE | 2021-02-24 11:26 | CR ---
Chest: 2 views of the chest were obtained. Comparison: Prior chest x-ray of 09/14/19. Heart size and mediastinum are within normal limits. Lungs are clear with no acute parenchymal change. Bony structures show nothing acute. Impression: 1. Nothing acute is seen on 2 view chest x-ray. Diagnostic code #1
== END 2021-02-24 00:20 | disposition home or self-care (01) ==
LOC: JD.ED 21:45
DX: R00.2 Palpitations (principal); R07.89 Other chest pain; R94.6 Abnormal results of thyroid function studies; Z79.899 Other long term (current) drug therapy
CPT/HCPCS: 36415; 71046; 80053; 83735; 84443; 84484; 85007; 85027; 85379; 93005; 99285; A9270; 93010; 99284

== ENCOUNTER 2021-10-17 19:05 | Emergency (ER) | payer SELFPAY ==
[2021-10-17] MEDS ORDERED: Ketorolac 15 MG/ML SDV IM ONE (19:35)
[2021-10-17] MEDS ORDERED: Ondansetron 4 MG Tab.DIS PO ONE (19:35)
[2021-10-17 20:41] LABS: CORONAVIRUS COVID-19 NAA NEGATIVE (NEGATIVE)
[2021-10-17 21:06] VITALS: BP 126/71; PULSE 109
== END 2021-10-17 21:08 | disposition home or self-care (01) ==
LOC: JD.ED 19:05
DX: M79.10 Myalgia, unspecified site (principal); R11.10 Vomiting, unspecified; Z20.822 Contact with and (suspected) exposure to COVID-19
CPT/HCPCS: 0241U; 96372; 99284; A9270; J1885; 99283

== ENCOUNTER 2022-02-13 01:07 | Emergency (ER) | payer OTHER ==
[2022-02-13 01:29] VITALS: BP 123/64; PULSE 71
[2022-02-13 02:21] LABS: CORONAVIRUS COVID-19 NAA NEGATIVE (NEGATIVE)
[2022-02-13] MEDS ORDERED: Albuterol 6.7 GM Inhaler INH ONE (03:02)
== END 2022-02-13 03:23 | disposition home or self-care (01) ==
LOC: JD.ED 01:07
DX: J40 Bronchitis, not specified as acute or chronic (principal); Z20.822 Contact with and (suspected) exposure to COVID-19
CPT/HCPCS: 0240U; 71045; 94640; 99284; A9270

== ENCOUNTER 2022-06-03 11:18 | Emergency (ER) | payer OTHER ==
[2022-06-03 14:25] VITALS: BP 135/91; PULSE 97
== END 2022-06-03 13:42 | disposition home or self-care (01) ==
LOC: JD.ED 11:18
DX: S62.343A Nondisplaced fracture of base of third metacarpal bone, left hand, initial encounter for closed fracture (principal); S60.212A Contusion of left wrist, initial encounter; V89.2XXA Person injured in unspecified motor-vehicle accident, traffic, initial encounter
CPT/HCPCS: 73110-26-LT; 73110-LT; 73130-26-LT; 73130-LT; 99283; 99284

== ENCOUNTER 2022-08-22 14:34 | Emergency (ER) | payer OTHER ==
[2022-08-22 14:49] VITALS: BP 117/86; PULSE 88
[2022-08-22] MEDS ORDERED: Sodium Chloride 0.9% 10 ML Syringe FLUSH PRN (14:49)
== END 2022-08-22 18:28 | disposition home or self-care (01) ==
LOC: SUPCPDRO 14:34 → JD.ED 14:34
DX: R07.89 Other chest pain (principal); R00.2 Palpitations; K21.9 Gastro-esophageal reflux disease without esophagitis; Z86.16 Personal history of COVID-19
CPT/HCPCS: 36415; 71045; 80053; 83735; 83880; 84484; 85025; 85610; 85730; 93005; 93225; 93226; 99285; J3490

== ENCOUNTER 2023-01-13 21:37 | Emergency (ER) | payer BC, OTHER ==
[2023-01-13 21:54] VITALS: BP 148/105; PULSE 74
[2023-01-13] MEDS ORDERED: Lidocaine 1% 10 ML MDV INJECT ONE (22:32)
[2023-01-13] MEDS ORDERED: Bupivacaine 0.5%/EPINEPHrine 1:200,000 30 ML SDV INJECT ONE (22:33)
[2023-01-13] MEDS ORDERED: Penicillin G Benzathine 1,200,000 Units/2 ML Syringe IM STA (22:33)
[2023-01-13] MEDS ORDERED: Lidocaine 2% Viscous Solution 15 ML UD PO STA (22:49)
== END 2023-01-13 23:40 | disposition home or self-care (01) ==
LOC: JD.ED 21:37
DX: K04.7 Periapical abscess without sinus (principal); Z86.16 Personal history of COVID-19
CPT/HCPCS: 41800; 96372; 99282; A9270; J0561; J3490; 99283

== ENCOUNTER 2023-07-25 22:40 | Emergency (ER) | payer SELFPAY ==
[2023-07-25 22:50] VITALS: BP 151/98; PULSE 69
[2023-07-25] MEDS ORDERED: Aspirin 81 MG Tab.Chew PO ONE (23:44)
[2023-07-25] MEDS ORDERED: Sodium Chloride 0.9% 10 ML Syringe FLUSH PRN (23:44)
[2023-07-25 23:51] LABS: BASOPHILS PERCENT AUTO 0.1 % (0.0-1.0); EOSINOPHILS ABSOLUTE AUTO 0.3 K/mm3 (0.0-0.4); EOSINOPHILS PERCENT AUTO 3.7 % (0.0-6.0); HEMATOCRIT 48.2 % (42.0-52.0); HEMOGLOBIN 17.1 gm/dl (14.0-18.0); IMMATURE GRAN ABSOLUTE AUTO 0.02 K/mm3 (0.00-0.05); IMMATURE GRAN PERCENT AUTO 0.3 % (0.0-0.4); LYMPHOCYTES ABSOLUTE AUTO 2.6 K/mm3 (1.0-4.8); LYMPHOCYTES PERCENT AUTO 36.4 % (24.0-44.0); MEAN CORPUSCULAR HEMOGLOBIN 28.3 pg (28.0-32.0); MEAN CORPUSCULAR HGB CONC 35.5 g/dl (32.0-36.0); MEAN CORPUSCULAR VOLUME 79.7 fl (83.0-99.0); MONOCYTES ABSOLUTE AUTO 0.7 K/mm3 (0.0-0.8); NEUTROPHILS ABSOLUTE AUTO 3.5 K/mm3 (1.8-7.7); NEUTROPHILS PERCENT AUTO 49.5 % (41.0-71.0); PLATELET COUNT,PLT 268 K/mm3 (150-400); RED BLOOD CELL COUNT 6.05 M/mm3 (4.52-5.90)
[2023-07-25 23:59] LABS: PROTHROMBIN TIME 10.7 SECONDS (9.7-12.0)
[2023-07-26 00:05] LABS: ANION GAP 15.6 (5-15); BILIRUBIN TOTAL 0.3 mg/dL (0.2-1.0); CREATININE 1.4 mg/dL (0.7-1.3); EST CRCL DRUG DOSING (CG) 79.66 mL/min; MAGNESIUM 1.7 mg/dL (1.8-2.4); PROTEIN TOTAL,TP 7.9 g/dl (6.4-8.2)
[2023-07-26 00:07] LABS: POTASSIUM,K 3.6 mEq/L (3.5-5.1)
[2023-07-26 00:08] LABS: D-DIMER QUANTITATIVE < 0.19 mg/L (0.19-0.50)
== END 2023-07-26 03:30 | disposition home or self-care (01) ==
LOC: JD.ED 22:40
DX: R07.89 Other chest pain (principal); Z87.891 Personal history of nicotine dependence; Z79.899 Other long term (current) drug therapy
CPT/HCPCS: 36415; 80053; 83735; 84484; 85025; 85379; 85610; 93005; 99285; A9270; J3490; 71045-26; 93010; 99283

== ENCOUNTER 2024-04-13 04:52 | Emergency (ER) | payer OTHER ==
[2024-04-13] MEDS: Sodium Chloride 0.9% 1,000 ML IV ONE (05:37)
[2024-04-13] MEDS: Sodium Chloride 0.9% 10 ML Syringe FLUSH PRN (05:37)
[2024-04-13 05:49] LABS: BASOPHILS PERCENT AUTO 0.2 % (0.0-1.0); EOSINOPHILS ABSOLUTE AUTO 0.1 K/mm3 (0.0-0.4); EOSINOPHILS PERCENT AUTO 2.4 % (0.0-6.0); HEMATOCRIT 48.7 % (42.0-52.0); HEMOGLOBIN 16.8 gm/dl (14.0-18.0); IMMATURE GRAN ABSOLUTE AUTO 0.03 K/mm3 (0.00-0.05); IMMATURE GRAN PERCENT AUTO 0.5 % (0.0-0.4); LYMPHOCYTES ABSOLUTE AUTO 1.6 K/mm3 (1.0-4.8); LYMPHOCYTES PERCENT AUTO 26.1 % (24.0-44.0); MEAN CORPUSCULAR HGB CONC 34.5 g/dl (32.0-36.0); MEAN CORPUSCULAR VOLUME 81.3 fl (83.0-99.0); MEAN PLATELET VOLUME 8.7 fl (9.4-12.4); MONOCYTES ABSOLUTE AUTO 0.6 K/mm3 (0.0-0.8); MONOCYTES PERCENT AUTO 10.3 % (0.0-8.0); NEUTROPHILS ABSOLUTE AUTO 3.6 K/mm3 (1.8-7.7); NEUTROPHILS PERCENT AUTO 60.5 % (41.0-71.0); PLATELET COUNT,PLT 238 K/mm3 (150-400); RED BLOOD CELL COUNT 5.99 M/mm3 (4.52-5.90); WHITE BLOOD CELL COUNT,WBC 5.95 K/mm3 (3.9-11.3)
[2024-04-13] MEDS: Orphenadrine 60 MG/2 ML Inj IV ONE (05:57)
[2024-04-13 06:20] LABS: ALBUMIN 3.9 g/dl (3.4-5.0); ANION GAP 14.8 (5-15); BILIRUBIN TOTAL 0.5 mg/dL (0.2-1.0); BUN/CREATININE RATIO 10.8 (14-18); CALCIUM 9.2 mg/dL (8.5-10.1); CREATININE 1.2 mg/dL (0.7-1.3); EST CRCL DRUG DOSING (CG) 89.19 mL/min; POTASSIUM,K 3.8 mEq/L (3.5-5.1); PROTEIN TOTAL,TP 7.7 g/dl (6.4-8.2)
[2024-04-13 06:22] LABS: APPEARANCE,URINE CLEAR (Clear); BILIRUBIN,URINE NEGATIVE (Negative); COLOR,URINE LIGHT YELLOW (Yellow); GLUCOSE,URINE NEGATIVE (Negative); KETONES,URINE NEGATIVE (Negative); LEUKOCYTE ESTERASE,URINE NEGATIVE (Negative); NITRITE,URINE NEGATIVE (Negative); OCCULT BLOOD,URINE NEGATIVE (Negative); PROTEIN,URINE NEGATIVE (Negative); UROBILINOGEN,URINE 0.2 (0.2-1.0)
[2024-04-13 07:04] VITALS: BP 129/67; PULSE 71
== END 2024-04-13 07:04 | disposition home or self-care (01) ==
LOC: JD.ED 04:52
DX: R25.2 Cramp and spasm (principal); Z86.16 Personal history of COVID-19; Z79.899 Other long term (current) drug therapy
CPT/HCPCS: 36415; 80053; 81003; 83735; 85025; 96374; 99283; J2360; J3490; J7030